=== PATIENT | female | born 1975 | race Caucasian/White ===

== ENCOUNTER 2017-10-06 10:57 | Outpatient (CLI) | payer OTHER ==
--- NOTE | 2017-10-06 16:10 | Ultrasound Report ---
TRANSABDOMINAL AND TRANSVAGINAL PELVIC ULTRASOUND: 10/06/17 10:57:00 CLINICAL: Pelvic pain for one year. FINDINGS: Transabdominal and transvaginal pelvic ultrasound demonstrated a retroverted uterus measuring 11.5 x 3.2 x 5.0 cm. The uterus is stretched and compressed by a very full urinary bladder, the measurement. Normal uterine echogenicity with no uterine fibroid or mass identified.The endometrium is normal and measures 7.6 mm AP thickness. A complex cyst of the right ovary measures 1.5 cm. The right ovary measures 3.1 x 4.2 x 2.4 cm. Multiple small follicles of the right ovary. Normal left ovary with small follicles. The left ovary measures 2.8 x 1.6 x 2.7 cm. No adnexal mass. No free fluid. Normal urinary bladder. IMPRESSION: 1. Normal uterus and endometrium. 2. A 1.5 cm complex and probably hemorrhagic cyst of the right ovary. 3. Normal left ovary.
--- NOTE | 2017-10-07 08:39 | Mammography Report ---
BILATERAL DIGITAL SCREENING MAMMOGRAM with CAD: 10/06/17 CLINICAL: Routine screening. COMPARISON:None available. However, a prior mammogram was apparently done at [facility]. FINDINGS: The breasts are heterogeneously dense, which may obscure small masses. A right asymmetry with architectural distortion on the CC view requires comparison with a prior mammogram or additional imaging.No suspicious calcifications.The left breast is negative. IMPRESSION: Right asymmetry and architectural distortion requiring further evaluation. BI-RADS CATEGORY: 0 -- Additional Evaluation Required RECOMMENDATION: Comparison with a previous mammogram. We will attempt to obtain a prior mammogram for comparison. If we do not obtain a prior mammogram within 30 days, a revised report will be issued recommending a recall for additional imaging. Please be advised that the patient should not schedule an appointment for return until adequate time (at least 2 weeks) has passed for us to obtain the prior mammogram. ACR BI-RADS MAMMOGRAPHIC CODES: 0 = Needs additional imaging evaluation; 1 = Negative; 2 = Benign; 3 = Probably benign; 4 = Suspicious; 5 = Malignant; 6 = Known biopsy-proven malignancy COMMENT: 1. Dense breast tissue, i.e., adenosis, fibrocystic changes, etc., may obscure an underlying neoplasm. 2. Approximately 10% of cancers are not detected with mammography. 3. A negative mammography report should not delay biopsy if a clinically suspicious mass is present. COMMENT: Patient follow-up letters are generated via our [employer] application.
== END 2017-10-06 10:58 | disposition home or self-care (01) ==
LOC: US 10:57
PROVIDERS: ATTEND Family Medicine
DX: Z12.31 Encounter for screening mammogram for malignant neoplasm of breast (principal); R10.2 Pelvic and perineal pain; N88.8 Other specified noninflammatory disorders of cervix uteri
CPT/HCPCS: 76830; 77067; 93975